=== PATIENT | male | born 1950 ===

== ENCOUNTER 2021-01-15 16:30 | Emergency (ER) | payer OTHER ==
[~2021-01-15] VITALS: Ht 167.6 cm; Wt 72.6 kg
[2021-01-15] MEDS ORDERED: TOPROL XL25 M1 PO (16:50)
[2021-01-15] MEDS ORDERED: DIALYVITE 800-1 EACH PO (16:51)
[2021-01-15] MEDS ORDERED: GLIMEPIRIDE1 M1 PO (16:51)
[2021-02-04] MEDS ORDERED: TOPROL XL25 M1 PO (10:43)
[2021-02-04] MEDS ORDERED: AMLODI PO (10:43)
[2021-02-04] MEDS ORDERED: PROBIOTIC1 EAC2 PO (10:44)
== END 2021-01-15 21:23 | disposition home or self-care (01) ==
LOC: ER 16:30
DX: N40.1 Benign prostatic hyperplasia with lower urinary tract symptoms (principal); R33.8 Other retention of urine; N35.819 Other urethral stricture, male, unspecified site; N32.0 Bladder-neck obstruction; C67.9 Malignant neoplasm of bladder, unspecified

== ENCOUNTER → 2021-02-04 08:00 | Outpatient (CLI) | payer OTHER ==
[~2021-02-04 08:00] MED LIST: AMLODI PO; DIALYVITE 800-1 EACH PO; GLIMEPIRIDE1 M1 PO; PROBIOTIC1 EAC2 PO; TOPROL XL25 M1 PO
== END | disposition home or self-care (01) ==
LOC: ADM 07:15 → LAB 08:00 → CIR.AMB 02-10 07:15 → EDSTATUS 02-10 07:15 → CIR.AMB 02-10 22:45
PROVIDERS: ATTEND Surgery
DX: N32.0 Bladder-neck obstruction (principal); Z03.818 Encounter for observation for suspected exposure to other biological agents ruled out; I10 Essential (primary) hypertension